=== PATIENT | male | born 1955 | race Caucasian/White ===

== ENCOUNTER 2017-05-19 19:37 | Emergency (ER) | payer OTHER ==
[2017-05-19 19:54] VITALS: BP 157/104; PULSE 57; TEMP 98; BMI 33.9
--- NOTE | 2017-05-19 20:17 | PDOC ---
History of Present Illness - General Chief Complaint: Back Pain Stated Complaint: BACK PAIN Time Seen by Provider: 05/19/17 20:09 History Source: Patient Exam Limitations: No Limitations - History of Present Illness Travel History: No Initial Comments: 05/19/17 21:54 61-year-old male with no medical history presents to the emergency department complaining of right sided low back pains without radiculopathy. Pain is described as 6/10 dull nonradiating intermittent discomfort which is exacerbated on movement and alleviated at rest. Patient denies any headache, dizziness, lightheadedness, nausea/vomiting, fever/chills, neck pains, chest pain, shortness of breath, abdominal pains, urinary symptoms, bladder or bowel dysfunction. 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 Timing/Duration: reports: intermittent Abdominal Pain Onset Location: reports: other (right LBP) Past History - Past Medical History Allergies/Adverse Reactions: Allergies Allergy/AdvReac Type Severity Reaction Status Date / Time No Known Allergies Allergy Verified 05/19/17 19:42 Home Medications: Ambulatory Orders Ketorolac Tromethamine [Toradol] 10 mg PO TID #21 tablet 05/19/17 Other medical history: denies - Psycho/Social/Smoking Cessation Hx Suicidal Ideation: No Smoking History: Never smoked Review of Systems - Review of Systems Able to Perform ROS?: Yes Comments:: 05/19/17 21:53 CONSTITUTIONAL: Absent: fever, chills, diaphoresis, generalized weakness, malaise, loss of appetite HEENT: Absent: rhinorrhea, nasal congestion, throat pain, throat swelling, difficulty swallowing, mouth swelling, ear pain, eye pain, visual Changes CARDIOVASCULAR: Absent: chest pain, loss of consciousness, palpitations, irregular heart rate, peripheral edema RESPIRATORY: Absent: cough, shortness of breath, dyspnea with exertion, orthopnea, wheezing, stridor, hemoptysis GASTROINTESTINAL: Absent: abdominal pain, abdominal distension, nausea, vomiting, diarrhea, constipation, melena, hematochezia GENITOURINARY: Absent: dysuria, frequency, urgency, hesitancy, hematuria, flank pain, genital pain MUSCULOSKELETAL: Right sided low back pain Absent: myalgia, arthralgia, joint swelling SKIN: Absent: rash, itching, pallor HEMATOLOGIC/IMMUNOLOGIC: Absent: easy bleeding, easy bruising, lymphadenopathy, frequent infections ENDOCRINE: Absent: unexplained weight gain, unexplained weight loss, heat intolerance, cold intolerance NEUROLOGIC: Absent: headache, focal weakness or paresthesias, dizziness, unsteady gait, seizure, mental status changes, bladder or bowel incontinence PSYCHIATRIC: Absent: anxiety, depression, suicidal or homicidal ideation, hallucinations. Is the patient limited Tajik proficient: No *Physical Exam - Vital Signs Last Vital Signs Temp Pulse Resp BP Pulse Ox 98 F 57 L 18 157/104 95 05/19/17 19:39 05/19/17 19:39 05/19/17 19:39 05/19/17 19:39 05/19/17 19:39 - Physical Exam Comments: 05/19/17 21:53 GENERAL: Well developed, well nourished. Awake and alert. No acute distress. HEENT: Normocephalic, atraumatic. PERRLA, EOMI. No conjunctival pallor. Sclera are non- icteric. Moist mucous membranes. Oropharynx is clear. NECK: Supple. Full ROM. No JVD. Carotid pulses 2+ and symmetric, without bruits. No thyromegaly. No lymphadenopathy. CARDIOVASCULAR: Regular rate and rhythm. No murmurs, rubs, or gallops. Distal pulses are 2+ and symmetric. PULMONARY: No evidence of respiratory distress. Lungs clear to auscultation bilaterally. No wheezing, rales or rhonchi. ABDOMINAL: Soft. Non-tender. Non-distended. No rebound or guarding. No organomegaly. Normoactive bowel sounds. MUSCULOSKELETAL Normal range of motion at all joints. No bony deformities or tenderness. No CVA tenderness. EXTREMITIES: No cyanosis. No clubbing. No edema. No calf tenderness. SKIN: Warm and dry. Normal capillary refill. No rashes. No jaundice. NEUROLOGICAL: Neg SLR Alert, awake, appropriate. Cranial nerves 2-12 intact. No deficits to light touch and temperature in face, upper extremities and lower extremities. No motor deficits in the in face, upper extremities and lower extremities. Normoreflexic in the upper and lower extremities. Normal speech. Toes are down- going bilaterally. Gait is normal without ataxia. PSYCHIATRIC: Cooperative. Good eye contact. Appropriate mood and affect. Progress Note - Progress Note Progress Note: 2141hrs: Pt is pain free. Wishes to be d/c *DC/Admit/Observation/Transfer Diagnosis at time of Disposition: Back pain Qualifiers: Back pain location: low back pain Chronicity: acute Back pain laterality: right Sciatica presence: without sciatica Qualified Code(s): M54.5 - Low back pain - Discharge Dispostion Disposition: HOME Condition at time of disposition: Stable Admit: No - Prescriptions Prescriptions: Ketorolac Tromethamine [Toradol] 10 mg PO TID #21 tablet - Referrals Referrals: Tyler Johnson MD [Staff Physician] - - Patient Instructions Printed Discharge Instructions: DI for Low Back Pain Additional Instructions: Rest Take Tylenol as needed for mild pain Take Toradol 10 mg one tablet 3 times a day only as needed for severe pain Follow-up with your doctor and/or the neurosurgeon listed on your discharge. Return back to the emergency department for severe/persistent or worsening symptoms. Print Language: CHINESE
[2017-05-19] MEDS ORDERED: KETOROLAC TROMETHAMINE 60 MG/2 ML VIAL IM ONE (20:47)
[2017-05-19] MEDS ORDERED: KETOROLAC TROMETHAMINE 60 MG/2 ML VIAL ONE (20:51)
[2017-05-19 20:59] LABS: URINE APPEARANCE CLEAR; URINE BILIRUBIN NEGATIVE (NEGATIVE); URINE BLOOD NEGATIVE (NEGATIVE); URINE COLOR YELLOW; URINE GLUCOSE (UA) NEGATIVE (NEGATIVE); URINE KETONE NEGATIVE (NEGATIVE); URINE LEUK ESTERASE NEGATIVE (NEGATIVE); URINE NITRITE NEGATIVE (NEGATIVE); URINE PROTEIN NEGATIVE (NEGATIVE); URINE UROBILINOGEN NEGATIVE mg/dL (0.2-1.0)
== END 2017-05-19 22:08 | disposition home or self-care (01) ==
LOC: JER 19:37
PROC: 3E0233Z Introduction of Anti-inflammatory into Muscle, Percutaneous Approach (ICD-10-PCS; principal; 2017-05-19)
DX: M54.5 Low back pain (principal)
CPT/HCPCS: 81003; 96372; 99282-25

== ENCOUNTER 2020-06-16 21:10 | Emergency (ER) | payer OTHER ==
[2020-06-16] MEDS ORDERED: IBUPROFEN 600 MG TABLET (FP) PO ONE (21:14)
--- NOTE | 2020-06-16 21:14 | PDOC ---
Rapid Medical Evaluation Time Seen by Provider: 06/16/20 21:11 Medical Evaluation: Allergies Allergy/AdvReac Type Severity Reaction Status Date / Time No Known Allergies Allergy Verified 05/19/17 19:42 06/16/20 21:12 I performed a brief in-person evaluation of this patient. Pt is a 64 y/o male with a R wrist injury after using a machine to "break a hole in the ground". The patient denies any past medical history or allergies to medication. Pt took Tylenol at 5. Pertinent physical exam findings: R wrist with swelling appreciated, pt moving all fingers I have ordered the following: R wrist xr, motrin Patient to proceed to ED for further evaluation. Discharge Disposition - Diagnosis Right wrist pain - Referrals - Patient Instructions - Post Discharge Activity
[2020-06-16 21:15] VITALS: TEMP 97.2; BMI 33.9
--- OUTSIDE RECORDS SUMMARY | 2020-06-16 21:26 | XMS ---
:1955 Author Organization [facility] Support Name Relationship Address Phone [employer] Unavailable [address] [place] [address] CHICHI FAUST [address] [id number] [place] [address] CHICHI FAUST Unavailable [address] [place] [address] Re-disclosure Warning The records that you are about to access may contain information from federally- assisted alcohol or drug abuse programs. If such information is present, then the following federally mandated warning applies: This information has been disclosed to you from records protected by federal confidentiality rules (42 CFR part 2). The federal rules prohibit you from making any further disclosure of this information unless further disclosure is expressly permitted by the written consent of the person to whom it pertains or as otherwise permitted by 42 CFR part 2. A general authorization for the release of medical or other information is NOT sufficient for this purpose. The Federal rules restrict any use of the information to criminally investigate or prosecute any alcohol or drug abuse patient.The records that you are about to access may contain highly sensitive health information, the redisclosure of which is protected by Article 27-F of the [facility] Public Health law. If you continue you may haveaccess to information: Regarding HIV / AIDS; Provided by facilities licensed or operated by the [facility] Office of Mental Health; or Provided by the [facility] Office for People With Developmental Disabilities. If such information is present, then the following [facility] mandated warning applies: This information has been disclosed to you from confidential records which are protected by state law. State law prohibits you from making any further disclosure of this information without the specific written consent of the person to whom it pertains, or as otherwise permitted by law. Any unauthorized further disclosure in violation of state law may result in a fine or intermediate sentence or both. A general authorization for the release of medical or other information is NOT sufficient authorization for further disclosure. Insurance Providers Payer name Policy type Policy ID Covered Covered libertarian's Policy P armani / Coverage libertarian ID relationship to [employer] orm[employer] type lawson RON [id number] [employer] NON CAP
--- NOTE | 2020-06-16 21:37 | PDOC ---
History of Present Illness - General Chief Complaint: Bone Injury Stated Complaint: INJURY Time Seen by Provider: 06/16/20 21:11 - History of Present Illness Initial Comments: 06/16/20 21:34 64-year-old male denies comorbidities presents for evaluation of right wrist pain after using a machine to break a hole in the ground. Patient describes a jackhammer he points to the DRUJ as the area of his discomfort. Past History - Medical History Allergies/Adverse Reactions: Allergies Allergy/AdvReac Type Severity Reaction Status Date / Time No Known Allergies Allergy Verified 06/16/20 21:15 Home Medications: Ambulatory Orders Ketorolac Tromethamine [Toradol] 10 mg PO TID #21 tablet 05/19/17 COPD: No - Psycho-Social/Smoking History Smoking History: Never smoked - Substance Abuse Hx (Audit-C & DAST Scrn) How often the patient has a drink containing alcohol: Never Score: In Men: 4 or > Positive; In Women: 3 or > Positive: 0 Screen Result (Pos requires Nsg. Audit-10AR): Negative In the last yr the pt used illegal drug/Rx for NonMed reason: No Score: Yes response is considered Positive: 0 Screen Result (Positive result requires Nsg. DAST-10): Negative Review of Systems - Review of Systems HEENTM: No: Blurred Vision Musculoskeletal: Yes: Joint Pain Neurological: No: Headache, Numbness, Paresthesia *Physical Exam - Vital Signs Last Vital Signs Temp Pulse Resp BP Pulse Ox 97.2 F L 71 18 173/108 H 97 06/16/20 21:11 06/16/20 21:11 06/16/20 21:11 06/16/20 21:11 06/16/20 21:11 - Physical Exam 06/16/20 21:35 Right wrist skin color temperature normal swelling at the dorsum of the wrist tenderness at the DRUJ no scaphoid tenderness no radial ulnar styloid tenderness no gross sensorimotor deficits neurovascular intact. Medical Decision Making - Medical Decision Making 06/16/20 21:35 X-rays of the right wrist show a widened DRUJ possibly an old distal radius fracture patient is hypertensive most likely due to pain no history of hypertension we will given Percocet in the emergency room have him follow-up with orthopedic surgery I have reviewed the pathophysiology with the patient. They are in agreement with the treatment plan all questions were answered to their satisfaction. Understanding for follow-up without fail was also conveyed to the patient. Again they are in agreement. Discharge - Discharge Information Problems reviewed: Yes Clinical Impression/Diagnosis: Right wrist pain, Right wrist sprain Condition: Stable Disposition: HOME - Admission No - Follow up/Referral Referrals: Jorge Luis Roland DO [Staff Physician] - - Patient Discharge Instructions Additional Instructions: Return to the emergency room for further issues. Without fail follow-up with orthopedic surgery in 2 to 3 days for further evaluation and treatment options.Tylenol Motrin as directed for pain. You were slightly hypertensive in the emergency room please follow-up with your primary care physician in 1 to 2 days for further management and recheck of your blood pressure should you require medication. - Post Discharge Activity
[2020-06-16 22:07] VITALS: BP 150/94; PULSE 70
== END 2020-06-16 22:13 | disposition home or self-care (01) ==
LOC: JERFT 21:10
DX: M25.531 Pain in right wrist (principal)
CPT/HCPCS: 73110-TC-RT-FY; 99284-25

== ENCOUNTER 2024-12-23 17:27 | Emergency (ER) | payer MEDICARE, OTHER ==
[2024-12-23 17:35] VITALS: TEMP 97.6; BMI 35.0
[2024-12-23 18:59] LABS: ABSOLUTE IMMATURE GRANULOCYTES 0.02 x10^3/uL (0.0-0.031); BASOPHILS # 0.05 x10^3/uL (0.01-0.08); EOSINOPHIL % 2.2 % (0.8-7.0); EOSINOPHILS # 0.15 x10^3/uL (0.04-0.54); HEMATOCRIT 40.3 % (40.1-51.0); HEMOGLOBIN 14.1 g/dL (13.7-17.5); MEAN CELL VOLUME 84.7 fl (79.0-92.2); MEAN PLT VOLUME 9.1 fl (9.4-12.4); MONOCYTE # 0.38 x10^3/uL (0.30-0.82); MONOCYTE % 5.5 % (5.3-12.2); PLATELET COUNT 228 x10^3/uL (163-337); RDW 12.8 % (12.2-16.4)
[2024-12-23 19:16] LABS: POTASSIUM 3.9 mmol/L (3.5-5.1)
[2024-12-23 19:18] LABS: CALCIUM 8.8 mg/dL (8.5-10.1)
[2024-12-23 19:19] LABS: ALBUMIN 3.6 g/dl (3.4-5.0)
[2024-12-23 19:22] LABS: CREATININE 0.8 mg/dL (0.55-1.3)
[2024-12-23 19:23] LABS: BILIRUBIN,TOTAL 0.3 mg/dL (0.2-1)
[2024-12-23 19:25] LABS: INR 1.05 (0.83-1.09); PROTHROMBIN TIME (PATIENT) 11.5 SEC (9.7-13.0)
[2024-12-23 19:27] LABS: ACTIVATED PTT 30.1 SECONDS (25.2-36.5)
[2024-12-23 19:28] LABS: TOT PROT 6.9 g/dl (6.4-8.2)
[2024-12-23 19:56] VITALS: BP 159/98; PULSE 60; RESP 16
== END 2024-12-23 19:56 | disposition home or self-care (01) ==
LOC: JER 17:27
DX: R55 Syncope and collapse (principal); R42 Dizziness and giddiness; R11.10 Vomiting, unspecified; Z91.148 Patient's other noncompliance with medication regimen for other reason
CPT/HCPCS: 36415; 71046-TC-FY; 80053; 83735; 84484; 85025; 85610; 85730; 93005; 93010; 99285-25